=== PATIENT | female | born 1940 | race Caucasian/White ===

== ENCOUNTER 2017-09-29 12:40 | Day surgery (SDC) | payer MEDICARE, BC ==
[~2017-09-29] VITALS: Ht 154.9 cm; Wt 57.1 kg
[~2017-09-29 12:40] MED LIST: B-12 500 MCG; B-12 500 MCG PO; CALCIUM 600MG+D1 TAB PO; CINNAMON500 MG; CINNAMON500 MG PO; COREG 25MG25 MG/TAB PO; CRANBERRY 100 M1 SGL PO; CRANBERRY FRUI405 MG PO; CYMBALTA 60MG60 MG PO; K-DUR 10 MEQ T10 MEQ PO; LANTUS100 U/ML SQ; LASIX 20MG TABL20 MG PO; LASIX 40MG TABL40 MG PO; MULTI VITAMINS1 TAB PO; MULTIPLE VITAMI1 CAP PO; NORVASC 5MG5 MG/TAB PO; PRINIVIL10 MG; PRINIVIL20 MG PO; SYNTHROID0.1 MG/TAB PO; TYLENOL 500MG500 MG PO; TYLENOL PM EXTR1 TA1 PO; ULTRAM 50MG TAB50 MG PO; VITAMIN D31000 IU PO
[2017-09-29] MEDS ORDERED: TYLENOL 500MG500 MG PO (13:13)
[2017-09-29 13:15] VITALS: BP 122/62; PULSE 68; TEMP 97.6
[2017-09-29 17:12] VITALS: BP 138/66; PULSE 68; TEMP 97.9
[2017-09-29 17:27] VITALS: BP 131/58; PULSE 68
[2017-09-29 17:42] VITALS: BP 123/93; PULSE 75
[2017-09-29 17:57] VITALS: BP 131/88; PULSE 70
[2017-09-29 18:27] VITALS: BP 135/78; PULSE 78
== END 2017-09-29 19:20 | disposition home or self-care (01) ==
LOC: SDCO 12:40 → SURG 17:00 → SDCO 19:20
DX: N20.2 Calculus of kidney with calculus of ureter (principal); D72.829 Elevated white blood cell count, unspecified; E11.9 Type 2 diabetes mellitus without complications; I10 Essential (primary) hypertension; G89.29 Other chronic pain; E03.9 Hypothyroidism, unspecified; Z90.49 Acquired absence of other specified parts of digestive tract; Z88.0 Allergy status to penicillin; Z88.5 Allergy status to narcotic agent; Z87.440 Personal history of urinary (tract) infections
CPT/HCPCS: OP; C1769; C1894; C2617; J0690; J1885; J2405; J2704; J3010; J7030; Q9967

== ENCOUNTER 2019-11-14 15:51 | Day surgery (SDC) | payer MEDICARE, BC ==
[~2019-11-14] VITALS: Ht 154.9 cm; Wt 58.0 kg
[2019-11-14] VITALS (9 sets, daily range): BP systolic 125–145; BP diastolic 59–91; PULSE 73–109; TEMP 97.8–98.7
--- NOTE | 2019-11-14 21:30 | NUR ---
Patient wanted to stay the night. They live 3 [place] away and her does not know his way around in the dark. Dr Zamora aware she is staying. She is voiding, urine is peach colored and a little hazy. She gets around well. She denies pain and nausea. She ate without any issues. No other changes at this time. Call light within reach.
[2019-11-15 04:00] VITALS: BP 138/76; PULSE 98; TEMP 98.1
--- NOTE | 2019-11-15 07:00 | NUR ---
Patient is discharging home this morning. Denies pain and nausea. They are going to leave after eating breakfast. Dr Zamora seen the patient. No other changes at this time. Call light within reach.
[2019-11-15 07:56] VITALS: BP 146/57; PULSE 86; TEMP 98.1
--- NOTE | 2019-11-15 08:25 | NUR ---
MORNING SHIFT ASSESSMENT COMPLETED AT THIS TIME. PATIENT REPORTS MINOR DISCOMFORT IN HER BACK. PATIENTS LEFT AC INT DISCONTINUED PER PENDING DISCHARGE. TIP INTACT. PATIENT TOLERATED WELL. DISCHARGE INSTRUCTIONS REVIEWED WITH PATIENT AND . QUESTIONS SOUGHT AND ANSWERED. PATIENT AMBULATED WITH SURGICAL STAFF TO PERSONAL VEHICLE. PATIENT DISCHARGED.
== END 2019-11-15 08:25 | disposition home or self-care (01) ==
LOC: SDCO 15:51 → JCC 19:15 → SDCO 11-15 08:25
DX: N20.1 Calculus of ureter (principal); I10 Essential (primary) hypertension; E11.9 Type 2 diabetes mellitus without complications; G89.29 Other chronic pain; M54.9 Dorsalgia, unspecified; R20.2 Paresthesia of skin; Z79.4 Long term (current) use of insulin; I11.0 Hypertensive heart disease with heart failure; I50.9 Heart failure, unspecified; E78.5 Hyperlipidemia, unspecified; G47.30 Sleep apnea, unspecified; E07.9 Disorder of thyroid, unspecified; M79.7 Fibromyalgia; Z98.51 Tubal ligation status; Z98.84 Bariatric surgery status; Z90.49 Acquired absence of other specified parts of digestive tract; Z79.899 Other long term (current) drug therapy; Z88.6 Allergy status to analgesic agent; Z20.828 Contact with and (suspected) exposure to other viral communicable diseases; Z88.5 Allergy status to narcotic agent; Z88.0 Allergy status to penicillin
CPT/HCPCS: OP; C1769; C2617; J0690; J2704; J3010; J7030; Q9967

== ENCOUNTER 2019-11-30 06:39 | Day surgery (SDC) | payer MEDICARE, BC ==
[~2019-11-30] VITALS: Ht 154.9 cm; Wt 57.2 kg
[~2019-11-30 06:39] MED LIST changes: +CENTRUM SILVER1 TAB PO; -MULTI VITAMINS1 TAB PO
[2019-11-30] MEDS ORDERED: VITAMIN B122500 MCG SL (07:35)
[2019-11-30] MEDS ORDERED: CELEBREX 1100 MG/CAP PO (07:40)
[2019-11-30] MEDS ORDERED: LUTEIN6 MG PO (07:41)
[2019-11-30] MEDS ORDERED: FOSAMAX 70MG TA70 MG PO (07:42)
[2019-11-30 07:52] VITALS: BP 128/60; PULSE 60; TEMP 97.9
[2019-11-30 11:20] VITALS: BP 120/52; PULSE 62; TEMP 97.6
--- NOTE | 2019-11-30 11:20 | NUR ---
The patient arrived back to [facility] from the recovery room at this this time. The patient appears drowys but arouses easily to her name. The patient has ice chips from PACU and appears to be tolerating them well. Post operative vital signs were started at this time. The patient's is at her bedside at this time. The patient denies any pain or nausea at this time. Call light is within reach. Will continue to monitor the patient.
[2019-11-30 11:35] VITALS: BP 114/63; PULSE 57
[2019-11-30] MEDS ORDERED: NORCO 325 MG-51 TAB PO (11:35)
--- NOTE | 2019-11-30 11:35 | NUR ---
The patient appears to be resting comfortably on the cart with her eyes closed at this time. Vital signs appear stable. Call light remains within reach. at bedside. Will continue to monitor the patient.
[2019-11-30 11:50] VITALS: BP 115/52; PULSE 59
[2019-11-30 12:05] VITALS: BP 109/43; PULSE 74
--- NOTE | 2019-11-30 12:05 | NUR ---
The patient appears more alert at this time and requests to try some toast, pudding and orange juice. The patient's vital signs appear stable. The patient denies any pain or nausea. Will continue to monitor the patient.
--- NOTE | 2019-11-30 12:05 | NUR ---
The patient appears to be tolerating the food and drink well. The patient denies any pain or nausea at this time. Call light remains within reach. Will continue to monitor the patient.
[2019-11-30 12:35] VITALS: BP 93/76; PULSE 70
--- NOTE | 2019-11-30 12:35 | NUR ---
The patient has finished her food and drink and requests to go to the bathroom at this time. The patient ambulated to the bathroom with the stand by assist of one nurse and appeared to tolerate the activity well. The patient voided without difficulty and voices a desire to be discharged home.
--- NOTE | 2019-11-30 13:00 | NUR ---
Discharge instructions were reviewed with the patient and her at this time. They both verbalized understanding and have no questions for the nurse at this time. The patient's IV to her right forearm was removed and a pressure dressing was applied to the site. The nurse instructed the patient to get dressed and notify the staff when she is ready to be escorted out.
--- NOTE | 2019-11-30 13:10 | NUR ---
The patient was escorted out via wheelchair to a private vehicle by GILLES Miles. The patient's belongings and discharge paperwork were sent with her. The patient's is present to drive her home.
== END 2019-11-30 13:10 | disposition home or self-care (01) ==
LOC: SDCO 06:39
DX: N20.2 Calculus of kidney with calculus of ureter (principal); Z20.828 Contact with and (suspected) exposure to other viral communicable diseases; I11.0 Hypertensive heart disease with heart failure; I50.9 Heart failure, unspecified; E11.9 Type 2 diabetes mellitus without complications; E78.5 Hyperlipidemia, unspecified; G47.30 Sleep apnea, unspecified; G89.29 Other chronic pain; I48.91 Unspecified atrial fibrillation; E07.9 Disorder of thyroid, unspecified; M79.7 Fibromyalgia; M19.90 Unspecified osteoarthritis, unspecified site; R20.2 Paresthesia of skin; Z79.4 Long term (current) use of insulin; Z79.899 Other long term (current) drug therapy; Z88.5 Allergy status to narcotic agent; Z88.0 Allergy status to penicillin; Z88.8 Allergy status to other drugs, medicaments and biological substances; Z98.84 Bariatric surgery status; Z98.51 Tubal ligation status
CPT/HCPCS: C1769; C2617; J1100; J1885; J2405; J2704; J3010; J7120